=== PATIENT | female | born 1995 | race African-American/Black ===

== ENCOUNTER 2017-11-04 08:45 | Emergency (ER) | payer BC ==
[2017-11-04 09:17] LABS: URINE HCG POC HCG NEGATIVE (Negative)
[2017-11-04 09:30] LABS: BILIRUBIN,URINE NEGATIVE (NEG); CLARITY,URINE CLOUDY; COLOR,URINE RED; GLUCOSE,URINE NEGATIVE (NEG); NITRITE,URINE NEGATIVE (NEG)
[2017-11-04 09:50] LABS: BACTERIA,URINE 0 /HPF (0-FEW); RBC,URINE >40 /HPF (0-2)
[2017-11-04] MEDS: ACETAMINOPHEN 500 MG TABLET PO ×2 (10:20)
== END 2017-11-04 12:59 | disposition home or self-care (01) ==
LOC: ER 08:45
DX: N93.9 Abnormal uterine and vaginal bleeding, unspecified (principal); R10.30 Lower abdominal pain, unspecified; E03.9 Hypothyroidism, unspecified
CPT/HCPCS: 74176; 81001; 81025; 99285-25

== ENCOUNTER → 2018-04-18 | Outpatient (CLI) | payer BC ==
[2017-11-04 11:18] VITALS: BP 135/60
--- NOTE | 2018-04-18 16:19 | RAD ---
Pelvic ultrasound, 04/18/2018: HISTORY: Menorrhagia with irregular periods Transabdominal scans were obtained. The patient refused transvaginal scanning. The bladder was initially distended, compressing the uterus on the early images. The uterus measures approximately 9 x 5 x 3 cm. A normal thin central uterine echo is present. The ovaries are of normal size. Blood flow is present in the ovaries. No adnexal mass is seen. No free fluid is evident in the pelvis. IMPRESSION: No significant abnormality is detected. Electronically signed by: Camilo Bates MD (04/18/2018 4:16 PM) [facility]
== END | disposition home or self-care (01) ==
LOC: US 14:22
PROVIDERS: ATTEND Nurse Practitioner Gerontology
DX: N92.1 Excessive and frequent menstruation with irregular cycle (principal); E03.9 Hypothyroidism, unspecified; Z86.2 Personal history of diseases of the blood and blood-forming organs and certain disorders involving the immune mechanism
CPT/HCPCS: 76856